=== PATIENT | female | born 1980 | race African-American/Black ===

== ENCOUNTER 2017-07-17 09:20 | Emergency (ER) | payer MEDICAID ==
[~2017-07-17] VITALS: Ht 175.3 cm; Wt 75.0 kg
[2017-07-17] MEDS ORDERED: ALBU18HF2 IH (09:39)
[2017-07-17] MEDS ORDERED: IPRATROPIUM BROMIDE (0.02%) 0.5MG/2.5ML NEB HHN STA (10:49)
[2017-07-17] MEDS ORDERED: ALBUTEROL (0.083%) 2.5MG/3ML NEB HHN STA (10:49)
[2017-07-17 11:07] LABS: CLARITY URINE CLEAR (CLEAR); COLOR URINE YELLOW (YELLOW); KETONES URINE NEGATIVE (NEGATIVE); LEUKOCYTE ESTERASE URINE 2+ (NEGATIVE); NITRITE URINE NEGATIVE (NEGATIVE); OCCULT BLOOD URINE NEGATIVE (NEGATIVE); PH URINE 5.5 (4.5-8.0); PROTEIN URINE NEGATIVE (NEGATIVE); SPECIFIC GRAVITY URINE 1.018 (1.005-1.030); UROBILINOGEN URINE 0.2 E.U./dL (0.2-1.0)
[2017-07-17 11:53] VITALS: BP 125/92
== END 2017-07-17 12:22 | disposition home or self-care (01) ==
LOC: ER 12:08
DX: J45.901 Unspecified asthma with (acute) exacerbation (principal); B34.9 Viral infection, unspecified; N30.90 Cystitis, unspecified without hematuria; F17.200 Nicotine dependence, unspecified, uncomplicated; Z98.51 Tubal ligation status; Z98.890 Other specified postprocedural states
CPT/HCPCS: 71045; 81001; 81025; 87086; 94640; 99285; J7611; Z7610